=== PATIENT | female | born 1930 | race Caucasian/White ===

== ENCOUNTER 2016-12-17 17:40 | Inpatient (IN) | payer MEDICARE, BC ==
[2016-12-17] MEDS ORDERED: HYDROcodone/APAP 5-325MG 1 EACH TAB PO PRN (22:13)
[2016-12-17] MEDS ORDERED: IBUPROFEN 200 MG TAB PO PRN (22:13)
[2016-12-17] MEDS ORDERED: clonazePAM 0.5 MG TAB PO PRN (22:13)
[2016-12-17] MEDS ORDERED: WARFARIN 2 MG TAB PO SCH (22:15)
[2016-12-17 22:45] VITALS: BMI 30.7
[2016-12-17] MEDS: FUROSEMIDE 10 MG/ML 4 ML VIAL IV SCH (23:58)
[2016-12-18 06:15] LABS: Anisocytosis Slight; Basophils # (A) 0.1 k/uL (0-0.2); Basophils % (A) 1 %; CH 28.2; CHCM 31.9; Eosinophils # (A) 0.1 k/uL (0-0.7); Eosinophils % (A) 1 %; HCT 36.4 % (34.0-46.0); HDW 2.26; HGB 11.6 gm/dL (11.4-16.0); Luc % (Auto) 3; Lymphocytes # (A) 1.9 k/uL (1.0-4.8); Lymphocytes % (A) 25 %; MCH 28.4 pg (25.0-35.0); MCHC 31.9 g/dL (31.0-37.0); Mean Platelet Volume 7.8; Monocytes # (A) 0.5 k/uL (0-1.0); Monocytes % (A) 7 %; Neutrophils # (A) 4.9 k/uL (1.3-7.7); Neutrophils % (A) 64 %; RDW 18.1 % (11.5-15.5); WBC 7.6 k/uL (3.8-10.6); WBC (Perox) 8.02
[2016-12-18 06:18] LABS: INR 2.5 (<1.1); Prothrombin Time 24.4 sec (9.0-12.0)
[2016-12-18] MEDS ORDERED: amLODIPine 5 MG TAB PO SCH (09:00)
--- NOTE | 2016-12-18 09:41 | ECHOF ---
Referral Reason:bradycardia MEASUREMENTS -------- HEIGHT: 147.3 cm WEIGHT: 64.4 kg BP: 133/62 RVIDd: 3.6 cm (< 3.3) IVSd: 1.0 cm (0.6 - 1.1) LVIDd: 4.4 cm (3.9 - 5.3) LVPWd: 1.0 cm (0.6 - 1.1) IVSs: 1.8 cm LVIDs: 3.7 cm LVPWs: 1.5 cm LA Diam: 4.4 cm (2.7 - 3.8) LAESV Index (A-L): 33.81 ml/m Ao Diam: 3.4 cm (2.0 - 3.7) AV Cusp: 2.7 cm (1.5 - 2.6) MV EXCURSION: 12.690 mm (> 18.000) MV EF SLOPE: 63 mm/s (70 - 150) EPSS: 0.1 cm RAP: 5.00 mmHg RVSP: 28.31 mmHg FINDINGS -------- The rhythm appears to be atrial flutter. This was a technically adequate study. The left ventricular size is normal. Left ventricular wall thickness is normal. Overall left ventricular systolic function is normal with, an EF between 60 - 65 %. The right ventricle is mildly enlarged. LA is midly dilated 29-33ml/m2. The right atrium is normal in size. Aortic valve is trileaflet and is mildly thickened. Mild mitral annular calcification present. There is trace mitral regurgitation. Mild tricuspid regurgitation present. Right ventricular systolic pressure is normal at < 35 mmHg. Trace/mild (physiologic) pulmonic regurgitation. The aortic root size is normal. The inferior vena cava is mildly dilated. There is no pericardial effusion. CONCLUSIONS -------- 1. The rhythm appears to be atrial flutter. 2. Mild mitral annular calcification present. 3. There is trace mitral regurgitation. 4. Mild tricuspid regurgitation present. 5. Right ventricular systolic pressure is normal at < 35 mmHg. 6. Trace/mild (physiologic) pulmonic regurgitation. 7. The aortic root size is normal. 8. The inferior vena cava is mildly dilated. 9. There is no pericardial effusion. 10. This was a technically adequate study. 11. The left ventricular size is normal. 12. Left ventricular wall thickness is normal. 13. Overall left ventricular systolic function is normal with, an EF between 60 - 65 %. 14. The right ventricle is mildly enlarged. 15. LA is midly dilated 29-33ml/m2. 16. The right atrium is normal in size. 17. Aortic valve is trileaflet and is mildly thickened. STOCK BROKER: Tina Muñoz RDCS
[2016-12-18] MEDS: FUROSEMIDE 10 MG/ML 4 ML VIAL IV SCH (09:52)
[2016-12-18] MEDS: SENNOSIDES-DOCUSATE SODIUM 1 EACH TAB PO SCH (09:57)
--- NOTE | 2016-12-18 11:04 | P.CRDCN ---
<Sophie Baig E - Last Filed: 12/18/16 10:53> History of Present Illness Consult date: 12/18/16 Requesting physician: Afshan Armendariz Reason for Consult (text): Bradycardia Chief complaint: Bradycardia History of present illness: Is a pleasant 86-year-old female with history of hypertension, chronic persistent atrial fibrillation, on Coumadin, Parkinson's, who follows with Dr. Ibarra in the [place] office. She was at physical therapy, they noted that her heart rate was low and for this reason she was brought to [facility]. EKG on arrival there showed atrial fibrillation with a slow ventricular response and patient was transferred here for further evaluation. Upon review of patient's home medications, it does not appear that she is on any rate lowering medication. She does state that she had been on thyroid medication in the past, which had been discontinued several years ago. She denies having any chest pain, her breathing overall has been stable. Laboratory data performed at [facility] is been reviewed, hemoglobin 11.8, platelet count 2:30, BNP level 2407, potassium 4.2, BUN 10, creatinine 0.7. Troponin 0.054. D-dimer 0.7 INR 2.2. Echocardiogram with Doppler study was performed here which revealed an ejection fraction of 60-65%. Blood pressure 133/60, heart rate in the 30s. Troponin 0.037, 0.026. BNP level 2480. INR 2.5. Patient was seen and examined, she denies having any dizziness or lightheadedness, no chest discomfort, no difficulty in breathing. Past Medical History Past Medical History: Atrial Fibrillation, Atrial Flutter, GERD/Reflux, Hypertension Additional Past Medical History / Comment(s): osteoporosis, incont of urine wears a pad, djd lt knee "knee goes out on me occ", parkinsons/tremors,balance issues, falls (6months ago), in april 2016 fell and fx lt humerus. rt hand dominant. Frequent urinary tract infections. Ataxia, weakness, speech impaired daughter says from parkinsons. 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 pt stated getting home care services Smoking Status: Never smoker Past Alcohol Use History: None Reported Past Drug Use History: None Reported - Past Family History Mother Additional Family Medical History / Comment(s): parkinsons Sister(s) Additional Family Medical History / Comment(s): parkinsons. niece/nephew with parkinsons Father Additional Family Medical History / Comment(s): " from a coronary thrombosis " Medications and Allergies Home Medications Medication Instructions Recorded Confirmed Type Lisinopril 40 mg PO HS 09/21/16 12/17/16 History HYDROcodone/APAP 5-325MG [[place] 1 each PO Q6H PRN 12/17/16 12/17/16 History 5-325] Ibuprofen [Advil] 200 mg PO Q4HR PRN 12/17/16 12/17/16 History Metoprolol Tartrate [Metoprolol 25 mg PO BID 12/17/16 12/17/16 History Tartrate] Multivitamins, Thera [Multivitamin] 1 tab PO DAILY 12/17/16 12/17/16 History Sennosides-Docusate Sodium 8.6 mg PO DAILY 12/17/16 12/17/16 History [Senokot-S] Warfarin [Coumadin] 2 mg PO SUMOWEFRSA 12/17/16 12/17/16 History rOPINIRole HCL [Requip Xl] 2 mg PO HS 12/17/16 12/17/16 History Allergies Allergy/AdvReac Type Severity Reaction Status Date / Time ciprofloxacin [From Cipro] Allergy Unknown Verified 12/17/16 21:38 ertapenem [From Invanz] Allergy Unknown Verified 12/17/16 21:38 Penicillins Allergy Rash/Hives Verified 12/17/16 21:38 Sulfa (Sulfonamide Allergy Rash/Hives Verified 12/17/16 21:38 Antibiotics) Physical Exam Vitals: Vital Signs Temp Pulse Resp BP Pulse Ox 12/18/16 03:45 97.1 F L 33 L 18 133/62 99 12/17/16 23:00 96.8 F L 31 L 16 154/69 98 12/17/16 22:28 96.8 F L 42 L 18 184/77 99 12/17/16 21:00 96.8 F L 42 L 16 155/64 99 Intake and Output 12/17/16 12/18/16 12/18/16 22:59 06:59 14:59 Intake Total 100 Output Total 1825 Balance -1825 100 Intake: Oral 100 Output: Urine 1825 Other: Voiding Method Bedside Commode Bedside Commode # Voids 1 1 Weight 66.7 kg 65.1 kg PHYSICAL EXAMINATION: HEENT: Head is atraumatic, normocephalic. Pupils equal, round. Neck is supple. There is no elevated jugular venous pressure. HEART EXAMINATION: R S1 and S2 irregular irregular CHEST EXAMINATION: Lungs are clear to auscultation and precussion. No chest wall tenderness is noted on palpation or with deep breathing. ABDOMEN: Soft, nontender. Bowel sounds are heard. No organomegaly noted. EXTREMITIES: 2+ peripheral pulses with no evidence of peripheral edema and no calf tenderness noted. Mild tremors NEUROLOGIC patient is awake, alert and oriented -3. Patient does have impaired speech secondary to Parkinson's . Results 12/18/16 05:39 Cardiac Enzymes 12/17/16 12/18/16 Range/Units 22:27 05:39 Troponin I 0.037 H* 0.026 (0.000-0.034) ng/mL Coagulation 12/18/16 Range/Units 05:39 PT 24.4 H (9.0-12.0) sec CBC 12/18/16 Range/Units 05:39 WBC 7.6 (3.8-10.6) k/uL RBC 4.10 (3.80-5.40) m/uL Hgb 11.6 (11.4-16.0) gm/dL Hct 36.4 (34.0-46.0) % Plt Count 220 (150-450) k/uL Current Medications Generic Name Dose Route Start Last Admin Trade Name Freq PRN Reason Stop Dose Admin Acetaminophen/Hydrocodone Bitart 1 each 12/17/16 22:13 [place] 5-325 PO Q6H PRN Moderate to Severe Pain Amlodipine Besylate 5 mg 12/18/16 09:00 12/18/16 09:52 Norvasc PO 5 mg DAILY STEVE Administration Clonazepam 0.5 mg 12/17/16 22:13 Klonopin PO BID PRN Agitation Furosemide 40 mg 12/17/16 22:30 12/18/16 09:52 Lasix IV 40 mg Q12HR STEVE Administration Ibuprofen 200 mg 12/17/16 22:13 Advil PO Q4HR PRN Mild Pain Lisinopril 40 mg 12/18/16 21:00 Zestril PO HS STEVE Multivitamins 1 each 12/18/16 12:00 Theragran PO DAILY@1200 STEVE Ropinirole HCl 0.5 mg 12/17/16 22:15 12/18/16 09:52 Requip PO 0.5 mg TID STEVE Administration Senna/Docusate Sodium 1 each 12/18/16 09:00 12/18/16 09:57 Senokot-S PO 1 each DAILY STEVE Administration Warfarin Sodium 2 mg 12/19/16 18:00 Coumadin PO SuMoWeFrSa@1800 STEVE Intake and Output 12/17/16 12/18/16 12/18/16 22:59 06:59 14:59 Intake Total 100 Output Total 1825 Balance -1825 100 Intake: Oral 100 Output: Urine 1825 Other: Voiding Method Bedside Commode Bedside Commode # Voids 1 1 Weight 66.7 kg 65.1 kg 12/18/16 05:39 EKG Interpretations (text) EKG shows atrial fibrillation with a slow ventricular response. Assessment and Plan Plan: Assessment and plan #1 bradycardia, EKG shows atrial fibrillation with a slow ventricular response #2 chronic persistent atrial fibrillation, on Coumadin. INR therapeutic #3 hypertension #4 Parkinson's Plan We will check the patient's free T4 and TSH level. Discontinue IV Lasix. Increase amlodipine to 10 mg one tablet by mouth daily. Obtain chest x-ray. Further recommendations to follow. DNP note has been reviewed, I agree with a documented findings and plan of care. Patient was seen and examined. Time with Patient: Greater than 30 <Julio Patel - Last Filed: 12/18/16 20:16> Physical Exam Vitals: Vital Signs Temp Pulse Resp BP Pulse Ox 12/18/16 16:00 97.2 F L 42 L 16 145/66 97 12/18/16 12:00 97.1 F L 45 L 14 137/81 98 12/18/16 08:00 97.4 F L 42 L 14 159/68 95 12/18/16 03:45 97.1 F L 33 L 18 133/62 99 12/17/16 23:00 96.8 F L 31 L 16 154/69 98 12/17/16 22:28 96.8 F L 42 L 18 184/77 99 12/17/16 21:00 96.8 F L 42 L 16 155/64 99 Intake and Output 12/18/16 12/18/16 12/18/16 06:59 14:59 22:59 Intake Total 100 180 Output Total 1825 Balance -1825 100 180 Intake: Oral 100 180 Output: Urine 1825 Other: Voiding Method Bedside Commode # Voids 1 0 Weight 65.1 kg Results 12/18/16 05:39 Cardiac Enzymes 12/17/16 12/18/16 Range/Units 22:27 05:39 Troponin I 0.037 H* 0.026 (0.000-0.034) ng/mL Coagulation 12/18/16 Range/Units 05:39 PT 24.4 H (9.0-12.0) sec CBC 12/18/16 Range/Units 05:39 WBC 7.6 (3.8-10.6) k/uL RBC 4.10 (3.80-5.40) m/uL Hgb 11.6 (11.4-16.0) gm/dL Hct 36.4 (34.0-46.0) % Plt Count 220 (150-450) k/uL Current Medications Generic Name Dose Route Start Last Admin Trade Name Freq PRN Reason Stop Dose Admin Acetaminophen/Hydrocodone Bitart 1 each 12/17/16 22:13 [place] 5-325 PO Q6H PRN Moderate to Severe Pain Amlodipine Besylate 10 mg 12/19/16 09:00 Norvasc PO DAILY STEVE Clonazepam 0.5 mg 12/17/16 22:13 Klonopin PO BID PRN Agitation Ibuprofen 200 mg 12/17/16 22:13 Advil PO Q4HR PRN Mild Pain Lisinopril 40 mg 12/18/16 21:00 Zestril PO HS [facility] Multivitamins 1 each 12/18/16 12:00 12/18/16 12:49 Theragran PO 1 each DAILY@1200 STEVE Administration Ropinirole HCl 0.5 mg 12/17/16 22:15 01/31/17 16:54 Requip PO 0.5 mg TID STEVE Administration Senna/Docusate Sodium 1 each 12/18/16 09:00 12/18/16 09:57 Senokot-S PO 1 each DAILY STEVE Administration Warfarin Sodium 2 mg 12/19/16 18:00 Coumadin PO SuMoWeFrSa@1800 [facility] Intake and Output 12/18/16 12/18/16 12/18/16 06:59 14:59 22:59 Intake Total 100 180 Output Total 1825 Balance -1825 100 180 Intake: Oral 100 180 Output: Urine 1825 Other: Voiding Method Bedside Commode # Voids 1 0 Weight 65.1 kg 12/18/16 05:39
[2016-12-18] MEDS ORDERED: amLODIPine 5 MG TAB PO ONE (11:15)
--- NOTE | 2016-12-18 11:41 | XR ---
EXAMINATION TYPE: XR chest 2V DATE OF EXAM: 12/18/2016 11:29 AM COMPARISON: NONE INDICATION: CHF weakness TECHNIQUE: Frontal and lateral views of the chest are obtained. FINDINGS: The heart size is borderline in size. The pulmonary vasculature is normal. The lungs are clear. Old left proximal humeral fracture appears to be present IMPRESSION: 1. No acute pulmonary process. 2. Borderline cardiomegaly.
[2016-12-18] MEDS ORDERED: PNEUMOCOCCAL VACC-PNEUMOVAX 23 25 MCG/0.5 ML VIAL IM ONE (12:02)
[2016-12-18] MEDS: MULTIVITAMINS, THERA 1 EACH TAB PO SCH (12:49)
[2016-12-18] MEDS ORDERED: ALPRAZolam 0.25 MG TAB PO PRN (21:26)
[2016-12-18] MEDS: LISINOPRIL 20 MG TAB PO SCH (22:19)
--- NOTE | 2016-12-19 05:32 | HP ---
DATE OF ADMISSION: DATE OF SERVICE: 12/18/2016 CHIEF COMPLAINT: Bradycardia. HISTORY OF PRESENT ILLNESS: This 86-year-old woman with a past medical history of multiple medical problems including atrial fibrillation, atrial flutter, GERD, hypertension, history of osteoporosis, history of back surgery, cholecystectomy, DJD, history of urinary problems being followed by primary physician in [facility] presented to [facility] ER with bradycardia. The patient was in therapy. The patient was found to have bradycardia, which was thought to be atrial flutter/fibrillation with low ventricular response. The patient was transferred to [facility] as a direct admission for further evaluation and treatment. There is no history of any fever, rigors or chills. No history of headache, loss of consciousness or seizures. The patient also had a polypharmacy, which was a concern for few abrasions of headache, loss of consciousness. The patient also had features concern for Dr. Baer who referred to the patient. The patient apparently was on beta blockers and taken a dose of 50 mg of prior to the presentation. There is no history of any fever, rigors or chills. No history of headaches, loss of consciousness or seizures. PAST MEDICAL HISTORY: History of atrial flutter, atrial fibrillation, GERD, hypertension, osteoporosis, back surgery, DJD, history of tonsillectomy. Medications prior to admission include home medications are: 1. Metoprolol 25 mg p.o. b.i.d. 2. Requip 2 mg p.o. q.h.s. 3. Senokot S 8.6 mg p.o. daily. 4. Multivitamin 1 p.o. daily. 5. Advil 200 mg q.4 p.r.n. 6. Norvasc 5 mg p.o. daily. 7. Coumadin 2 mg Saturday, Saturday, Saturday, Saturday, Saturday. 8. Lisinopril 40 mg q.h.s. 9. Klonopin 0.5 mg b.i.d. p.r.n. 10. [place] 5 mg q.6 p.r.n. Allergies are multiple allergies are CIPRO, INVANZ, PENICILLIN, and SULFA. FAMILY HISTORY: History of Parkinson's in the family. SOCIAL HISTORY: No history of smoking. No history of alcohol intake. REVIEW OF SYSTEMS: ENT: Diminished hearing, diminished vision. CARDIOVASCULAR: As mentioned earlier. RESPIRATORY: As mentioned earlier. GI: No nausea. : No dysuria. NERVOUS SYSTEM: No numbness or weakness. ALLERGY/IMMUNOLOGY: No asthma or hayfever. MUSCULOSKELETAL: As mentioned earlier. HEMATOLOGY/ONCOLOGY: No history of anemia. ENDOCRINE: No history of diabetes or hypothyroidism. CONSTITUTIONAL: As mentioned earlier. DERMATOLOGY: Negative. RHEUMATOLOGY: Negative. PSYCHIATRY: As mentioned earlier. PHYSICAL EXAMINATION: The patient is alert and oriented x3. The pulse is 42, blood pressure is 145/66, respirations 16, temperature 97.2, pulse ox 97% on room air. HEENT: Conjunctivae normal. Oral mucosa moist. NECK: No jugular venous distention. No carotid bruit. No lymph node enlargement. CARDIOVASCULAR: S1 and S2, muffled. Bradycardiac, irregular. No S3, no S4. Ejection systolic murmur present. RESPIRATORY: Breath sounds diminished at the bases. A few scattered rhonchi and crackles. ABDOMEN: Soft, obese, nontender. No mass palpable. No hepatosplenomegaly. LEGS: No edema, no swelling. NERVOUS SYSTEM: Higher function as mentioned earlier. Cranial nerves grossly intact. Moves all 4 limbs. No focal motor or sensory deficits. LYMPHATICS: No lymphadenopathy of neck, axillae or groin. SKIN: No ulcer, rash or bleeding. Labs are at this time shows WBC 7.7, hemoglobin 11.6. INR is 2.5. Troponin 0.037. NT-proBNP is 2480. TSH is normal. ASSESSMENT: 1. Bradycardia with atrial flutter, fibrillation with slow ventricular rate, possibly medication induced. 2. Coumadin monitoring. 3. History of atrial flutter, atrial fibrillation. 4. History of gastroesophageal reflux disease. 5. Hypertension. 6. History of degenerative joint disease. 7. History of Parkinson's tremors. 8. History of recurrent urinary tract infections. 9. History of ataxia. 10. History of possible Parkinson's. 11. History of cholecystectomy. 12. History of postoperative nausea and vomiting. 13. FULL CODE. RECOMMENDATIONS AND DISCUSSION: This 86-year-old woman presented with multiple complex medical issues. Will monitor the patient closely. Continue the current medications and symptomatic treatment. Recommend to hold the beta blockers. Continue with Coumadin. Continue with Norvasc. Continue with the rest of the medications. Otherwise, prognosis guarded because of multiple complex medical issues. Further recommendations to follow. We will also repeat labs also. The prognosis guarded and 2-D echo has been reviewed. Further recommendations to follow. Polypharmacy will also be addressed. [facility]
[2016-12-19 06:20] LABS: INR 1.7 (<1.1)
[2016-12-19 06:22] LABS: Anisocytosis Slight; Basophils % (A) 0 %; CH 28.4; CHCM 32.2; Eosinophils # (A) 0.1 k/uL (0-0.7); Eosinophils % (A) 1 %; HCT 39.3 % (34.0-46.0); HDW 2.23; HGB 12.3 gm/dL (11.4-16.0); Luc # (Auto) 0.13; Luc % (Auto) 2; Lymphocytes # (A) 1.7 k/uL (1.0-4.8); Lymphocytes % (A) 24 %; MCH 27.8 pg (25.0-35.0); MCHC 31.4 g/dL (31.0-37.0); MCV 88.5 fL (80.0-100.0); Mean Platelet Volume 7.4; Monocytes # (A) 0.5 k/uL (0-1.0); Monocytes % (A) 6 %; Neutrophils # (A) 4.8 k/uL (1.3-7.7); Neutrophils % (A) 67 %; RBC 4.44 m/uL (3.80-5.40); RDW 17.8 % (11.5-15.5); WBC 7.2 k/uL (3.8-10.6); WBC (Perox) 7.94
[2016-12-19 06:38] LABS: Anion Gap 10 mmol/L; Blood Urea Nitrogen 13 mg/dL (7-17); Calcium 9.2 mg/dL (8.4-10.2); Carbon Dioxide 31 mmol/L (22-30); Chloride 98 mmol/L (98-107); Glucose 101 mg/dL (74-99); Non-African American GFR(MDRD) >60 (>60 ml/min/1.73 sqM); Potassium 3.8 mmol/L (3.5-5.1); Sodium 139 mmol/L (137-145)
[2016-12-19] MEDS: amLODIPine 10 MG TAB PO SCH (08:07)
[2016-12-19] MEDS: SENNOSIDES-DOCUSATE SODIUM 1 EACH TAB PO SCH (08:07)
[2016-12-19] MEDS: MULTIVITAMINS, THERA 1 EACH TAB PO SCH (12:14)
--- NOTE | 2016-12-19 13:23 | P.PN ---
Subjective Principal diagnosis: Bradycardia This Is a pleasant 86-year-old female with history of hypertension, chronic persistent atrial fibrillation, on Coumadin, Parkinson's, who follows with Dr. Luz in the [place] office. She was at physical therapy, they noted that her heart rate was low and for this reason she was brought to [facility]. EKG on arrival there showed atrial fibrillation with a slow ventricular response and patient was transferred here for further evaluation. Upon review of patient's home medications on arrival here, it did not appear that she was on any rate lowering medication, yesterday evening an accurate list was given, patient apparently had been on Lopressor 25 mg by mouth twice a day, however she had only just recently been on this. This has been held for 24 hours, patient continues to have a heart rate in the 30s to 40s. The plan is to continue to monitor the patient, once a beta ulcia is out of her system and she persists to be bradycardic she will need implantation of a permanent pacemaker. Thyroid level was normal Objective - Vital Signs Vital signs: Vital Signs Temp 97.4 F L 12/19/16 08:00 Pulse 52 L 12/19/16 12:00 Resp 16 12/19/16 12:00 BP 155/57 12/19/16 12:00 Pulse Ox 99 12/19/16 12:00 Intake & Output 12/18/16 12/19/16 12/19/16 18:59 06:59 18:59 Intake Total 280 Output Total 500 300 Balance 280 -500 -300 Weight 65 kg Intake: Oral 280 Output: Urine 500 300 Other: Voiding Method Bedside Commode Bedside Commode # Voids 0 # Bowel Movements 1 - Exam PHYSICAL EXAMINATION: HEENT: Head is atraumatic, normocephalic. Pupils equal, round. Neck is supple. There is no elevated jugular venous pressure. HEART EXAMINATION: R S1 and S2 irregular irregular CHEST EXAMINATION: Lungs are clear to auscultation and precussion. No chest wall tenderness is noted on palpation or with deep breathing. ABDOMEN: Soft, nontender. Bowel sounds are heard. No organomegaly noted. EXTREMITIES: 2+ peripheral pulses with no evidence of peripheral edema and no calf tenderness noted. Mild tremors NEUROLOGIC patient is awake, alert and oriented -3. Patient does have impaired speech secondary to Parkinson's - Labs CBC & Chem 7: 12/19/16 05:49 12/19/16 05:49 Labs: Abnormal Lab Results - Last 24 Hours (Table) 12/19/16 12/19/16 12/19/16 Range/Units 05:49 05:49 05:49 RDW 17.8 H (11.5-15.5) % PT 16.0 H (9.0-12.0) sec Carbon Dioxide 31 H (22-30) mmol/L Glucose 101 H (74-99) mg/dL Assessment and Plan Plan: Assessment and plan #1 bradycardia, EKG shows atrial fibrillation with a slow ventricular response #2 chronic persistent atrial fibrillation, on Coumadin. INR 1.7 today. #3 hypertension #4 Parkinson's Plan We'll continue to monitor the patient off of beta lucia, if she persists to be bradycardic she will require implantation of a permanent pacemaker. DNP note has been reviewed, I agree with a documented findings and plan of care. Patient was seen and examined.
[2016-12-19] MEDS ORDERED: WARFARIN 2 MG TAB PO SCH (18:00)
[2016-12-19] MEDS ORDERED: WARFARIN 5 MG TAB PO ONE (18:00)
--- NOTE | 2016-12-19 19:09 | PN ---
DATE OF SERVICE: 12/19/2016 This 86-year-old woman who was admitted with bradycardia and atrial flutter/fibrillation is being closely monitored. Cardiology is following the patient closely for possible pacemaker implantation. No chest pain or palpitations. No fever. On examination, alert and oriented x2. Pulse 52, blood pressure 155/57, respiratory rate 16, temperature 97.4, pulse ox 99% on room air. HEENT: Conjunctivae normal. NECK: No jugular venous distention. CARDIOVASCULAR SYSTEM: S1, S2 regular but bradycardic. RESPIRATORY SYSTEM: Breath sounds diminished at the bases. A few scattered rhonchi. ABDOMEN: Soft, nontender. LEGS: No edema. No swelling. NERVOUS SYSTEM: No focal deficit. LABS: INR 1.7 NT-proBNP 2480. The chest x-ray shows borderline cardiomegaly. Otherwise, 2-D echo with Doppler shows ejection fraction about 60% to 65%, LA mildly dilated. ASSESSMENT: 1. Bradycardia with atrial flutter/fibrillation with a slow ventricular rate, possibly medication-induced. 2. Coumadin monitoring. 3. History of atrial flutter/fibrillation. 4. History of gastroesophageal reflux disease. 5. Hypertension. 6. History of degenerative joint disease. 7. History of parkinsonian tremors. 8. Recurrent urinary tract infections. 9. History of ataxia. 10. History of cholecystectomy. 11. History of postoperative nausea, vomiting. 12. FULL CODE. RECOMMENDATIONS AND DISCUSSION: In this 86-year-old woman who presented with multiple complex medical issues, we will monitor the patient closely. The heart rate is still low. I would follow the patient closely with Cardiology. Avoid rate-limiting drugs. Possible pacemaker. Further recommendations to follow.
[2016-12-19] MEDS: MELATONIN 3 MG TABLET PO SCH (22:17)
[2016-12-19] MEDS: LISINOPRIL 20 MG TAB PO SCH (22:17)
[2016-12-20 06:33] LABS: Anisocytosis Slight; Basophils % (A) 0 %; CH 28.4; CHCM 32.3; Eosinophils # (A) 0.1 k/uL (0-0.7); Eosinophils % (A) 1 %; HCT 39.3 % (34.0-46.0); HDW 2.26; HGB 12.5 gm/dL (11.4-16.0); Luc % (Auto) 3; Lymphocytes # (A) 1.9 k/uL (1.0-4.8); Lymphocytes % (A) 27 %; MCH 28.2 pg (25.0-35.0); MCHC 31.9 g/dL (31.0-37.0); MCV 88.5 fL (80.0-100.0); Mean Platelet Volume 8.1; Monocytes # (A) 0.4 k/uL (0-1.0); Monocytes % (A) 6 %; Neutrophils # (A) 4.4 k/uL (1.3-7.7); Neutrophils % (A) 62 %; RBC 4.44 m/uL (3.80-5.40); RDW 17.6 % (11.5-15.5); WBC 7.1 k/uL (3.8-10.6)
[2016-12-20 06:35] LABS: INR 1.4 (<1.1); Prothrombin Time 13.8 sec (9.0-12.0)
[2016-12-20 06:44] LABS: Anion Gap 8 mmol/L; Blood Urea Nitrogen 15 mg/dL (7-17); Calcium 9.3 mg/dL (8.4-10.2); Carbon Dioxide 32 mmol/L (22-30); Chloride 102 mmol/L (98-107); Glucose 94 mg/dL (74-99); Non-African American GFR(MDRD) >60 (>60 ml/min/1.73 sqM); Potassium 4.5 mmol/L (3.5-5.1); Sodium 142 mmol/L (137-145)
[2016-12-20] MEDS: amLODIPine 10 MG TAB PO SCH (08:11)
[2016-12-20] MEDS: SENNOSIDES-DOCUSATE SODIUM 1 EACH TAB PO SCH (08:11)
[2016-12-20] MEDS: MULTIVITAMINS, THERA 1 EACH TAB PO SCH (11:45)
[2016-12-20] MEDS: SODIUM CHLORIDE 0.9% 1,000 ML IV SCH (11:45)
--- NOTE | 2016-12-20 14:17 | P.PN ---
Subjective Principal diagnosis: Bradycardia This Is a pleasant 86-year-old female with history of hypertension, chronic persistent atrial fibrillation, on Coumadin, Parkinson's, who follows with Dr. Luz in the [place] office. She was at physical therapy, they noted that her heart rate was low and for this reason she was brought to [facility]. EKG on arrival there showed atrial fibrillation with a slow ventricular response and patient was transferred here for further evaluation. In spite of the patient's beta lucia being held, heart rate consistently is in the low 40s. Dr. Patel did have a lengthy discussion with the patient and her today regarding implantation of a permanent pacemaker. The risks and the benefits were explained in detail. This will be performed tomorrow. Objective - Vital Signs Vital signs: Vital Signs Temp 98.1 F 12/20/16 11:40 Pulse 57 L 12/20/16 11:40 Resp 18 12/20/16 11:40 BP 119/59 12/20/16 11:40 Pulse Ox 95 12/20/16 11:40 Intake & Output 12/19/16 12/20/16 12/20/16 18:59 06:59 18:59 Intake Total 200 Output Total 300 725 301 Balance -300 -725 -101 Weight 62.5 kg Intake: Oral 200 Output: Urine 300 725 300 Urine/Stool Mix 1 Other: Voiding Method Bedside Commode Bedside Commode Bedside Commode - Exam PHYSICAL EXAMINATION: HEENT: Head is atraumatic, normocephalic. Pupils equal, round. Neck is supple. There is no elevated jugular venous pressure. HEART EXAMINATION: R S1 and S2 irregular irregular CHEST EXAMINATION: Lungs are clear to auscultation and precussion. No chest wall tenderness is noted on palpation or with deep breathing. ABDOMEN: Soft, nontender. Bowel sounds are heard. No organomegaly noted. EXTREMITIES: 2+ peripheral pulses with no evidence of peripheral edema and no calf tenderness noted. Mild tremors NEUROLOGIC patient is awake, alert and oriented -3. Patient does have impaired speech secondary to Parkinson's - Labs CBC & Chem 7: 12/20/16 05:32 12/20/16 05:32 Labs: Abnormal Lab Results - Last 24 Hours (Table) 12/20/16 12/20/16 12/20/16 Range/Units 05:32 05:32 05:32 RDW 17.6 H (11.5-15.5) % PT 13.8 H (9.0-12.0) sec Carbon Dioxide 32 H (22-30) mmol/L Assessment and Plan Plan: Assessment and plan #1 bradycardia, EKG shows atrial fibrillation with a slow ventricular response #2 chronic persistent atrial fibrillation, on Coumadin. INR 1.4 today. #3 hypertension #4 Parkinson's Plan We will give the patient 5 mg of Coumadin today. She will be scheduled to undergo implantation of a permanent pacemaker tomorrow by Dr. Patel. DNP note has been reviewed, I agree with a documented findings and plan of care. Patient was seen and examined.
--- NOTE | 2016-12-20 18:56 | PN ---
DATE OF SERVICE: 12/20/2016 This 86 -year-old woman was admitted to the hospital with severe bradycardia in a setting of atrial flutter fibrillation, is being closely monitored. Cardiology, pacemaker implantation has been scheduled tentatively. No chest pain or palpitation. No fever. Patient is off beta blockers. On exam, alert and oriented x3. Pulse is 57, blood pressure 119/59, respiration 18. Temperature 97.9. Pulse is up to , pulse ox 99% on room air. HEENT: Conjunctivae normal. NECK: No jugular venous distention. CARDIOVASCULAR: S1, S2 muffled. RESPIRATORY: Breath sounds diminished at the bases. A few scattered rhonchi. No crackles. ABDOMEN: Soft, nontender. No mass palpable. LEGS: No edema. No swelling. CENTRAL NERVOUS SYSTEM: No focal deficits. LABS: INR 1.4. Troponins noted. ASSESSMENT: 1. Bradycardia with atrial fibrillation with slow ventricular rate not improving while off beta blockers. 2. Coumadin monitoring. 3. History of atrial flutter, fibrillation. 4. History of gastroesophageal reflux disease. 5. Hypertension. 6. History of degenerative joint disease. 7. History of Parkinsonian tremors. 8. Recurrent urinary tract infection. 9. History of ataxia. 10. History of cholecystectomy. 11. History of postoperative nausea and vomiting. 12. FULL CODE. RECOMMENDATIONS AND DISCUSSION: Recommend to continue the current medications, continue with monitoring. Symptomatic treatment. Otherwise, at this time, I recommend closely follow with cardiology and pacemaker. Guarded prognosis because of multiple complex medical issues. Further recommendations to follow. See orders for details. Avoid beta blockers. MTDD
[2016-12-20] MEDS: LISINOPRIL 20 MG TAB PO SCH (21:37)
[2016-12-20] MEDS: MELATONIN 3 MG TABLET PO SCH (21:37)
[2016-12-21 06:07] LABS: Anisocytosis Slight; Basophils % (A) 0 %; CH 28.4; CHCM 32.2; Eosinophils # (A) 0.1 k/uL (0-0.7); Eosinophils % (A) 1 %; HCT 37.2 % (34.0-46.0); HDW 2.24; Luc # (Auto) 0.19; Luc % (Auto) 3; Lymphocytes # (A) 1.9 k/uL (1.0-4.8); Lymphocytes % (A) 28 %; MCH 28.6 pg (25.0-35.0); MCHC 32.3 g/dL (31.0-37.0); MCV 88.4 fL (80.0-100.0); Mean Platelet Volume 7.3; Monocytes # (A) 0.5 k/uL (0-1.0); Monocytes % (A) 7 %; Neutrophils # (A) 4.1 k/uL (1.3-7.7); Neutrophils % (A) 61 %; RBC 4.21 m/uL (3.80-5.40); RDW 17.6 % (11.5-15.5); WBC 6.8 k/uL (3.8-10.6); WBC (Perox) 7.13
[2016-12-21 06:13] LABS: INR 1.8 (<1.1); Prothrombin Time 17.8 sec (9.0-12.0)
[2016-12-21 06:26] LABS: Anion Gap 9 mmol/L; Blood Urea Nitrogen 14 mg/dL (7-17); Calcium 9.1 mg/dL (8.4-10.2); Carbon Dioxide 29 mmol/L (22-30); Chloride 102 mmol/L (98-107); Glucose 99 mg/dL (74-99); Non-African American GFR(MDRD) >60 (>60 ml/min/1.73 sqM); Potassium 4.1 mmol/L (3.5-5.1); Sodium 140 mmol/L (137-145)
[2016-12-21] MEDS: amLODIPine 10 MG TAB PO SCH (08:20)
[2016-12-21] MEDS: SENNOSIDES-DOCUSATE SODIUM 1 EACH TAB PO SCH (10:50)
[2016-12-21] MEDS: SODIUM CHLORIDE 0.9% 1,000 ML IV SCH (10:58)
[2016-12-21] MEDS ORDERED: IV FLUID CONTINUATION 1,000 ML IV ONE (13:00)
[2016-12-21] MEDS ORDERED: IODIXANOL 320 MG/ML 100 ML IV ONE (13:33)
[2016-12-21] MEDS: CLINDAMYCIN 600 MG in SODIUM CHLORIDE 0.9% IRRIGATIO 250 ML IRRIGATION ONE ×2 (13:40→13:42)
[2016-12-21] MEDS: CLINDAMYCIN 900 MG in DEXTROSE 5% IN WATER 50 ML IVPB ONE ×4 (13:41→13:42)
[2016-12-21] MEDS ORDERED: LIDOCAINE 1% INJ 10MG/ML (20 ML MDV) SQ ONE ×2 (13:46→13:52)
[2016-12-21] MEDS ORDERED: fentaNYL (PF) 50 MCG/ML 2 ML AMP ONE (13:46)
[2016-12-21] MEDS ORDERED: fentaNYL (PF) 50 MCG/ML 2 ML AMP IV ONE (13:49)
[2016-12-21] MEDS ORDERED: ACETAMINOPHEN TAB 325 MG TAB PO PRN (14:25)
--- NOTE | 2016-12-21 14:48 | PCN ---
DATE OF PROCEDURE: Patient presented with severe bradycardia. Her metoprolol 25 mg twice daily was discontinued, but she remained bradycardic in the 40s for the next 3 days, and therefore a single-chamber pacemaker was implanted. She was brought to the EP lab in a fasting state. Written informed consent was obtained prior to the procedure. The left shoulder area was prepped and draped as per protocol. Lidocaine 1% was used for local anesthesia. A 4 cm incision was made parallel to the deltopectoral groove about 1.5 cm medial to it. The incision was carried down to the level of the pectoralis muscle. A subfascial pocket was made. Hemostasis was assured. The left axillary vein was accessed and via an appropriate-sized introducer sheath, a [employer] Jevity MRI passive 59 cm lead was placed. This was a model #7732, serial #[id number]. This was positioned in the RV apex. Pacing impedance 870 ohms. R waves 17.7 mV. Pacing threshold 0.6 v at 0.4 ms. Ten-volt test was negative. The lead was secured to the underlying pectoralis fascia using 2 non-absorbable sutures. The pocket was irrigated with antibiotic solution. The lead was connected to the generator ([employer] Accolade MRI SR model #L310, serial #[id number]). The lead and the generator were then placed in the subfascial pocket. The wound was closed in 3 layers and dressed per protocol. Device was programmed to VVIR 60 to 120 bpm. PLAN: Intravenous antibiotics. Follow up with Dr. Luz in the device clinic.
[2016-12-21] MEDS: MULTIVITAMINS, THERA 1 EACH TAB PO SCH (17:05)
[2016-12-21] MEDS: CLINDAMYCIN 900 MG in DEXTROSE 5% IN WATER 50 ML IVPB SCH ×2 (18:08)
--- NOTE | 2016-12-21 20:04 | P.PN ---
Subjective Date of service 12/21/2016. Progress note being dictated for Dr. Armendariz. Interval history: This is an 86-year-old female admitted with severe bradycardia , atrial fib /flutter and multiple other medical issues. Evaluated by cardiology and underwent pacemaker implantation today. Tolerated procedure well. Telemetry 100% paced, heart rate in the 60s. Denies lightheadedness dizziness or focal deficits. His chest pain, palpitations or increasing shortness of breath. INR 1.8. Objective - Vital Signs Vital signs: Vital Signs Temp 97.0 F L 12/21/16 15:00 Pulse 60 12/21/16 15:00 Resp 18 12/21/16 15:00 BP 133/66 12/21/16 15:00 Pulse Ox 98 12/21/16 15:00 Intake & Output 12/20/16 12/21/16 12/21/16 18:59 06:59 18:59 Intake Total 420 56 Output Total 1551 600 400 Balance -1131 -600 -344 Weight 63.7 kg Intake: IV 56 Oral 420 0 Output: Urine 1550 600 400 Urine/Stool Mix 1 Other: Voiding Method Bedside Commode Bedside Commode Bedside Commode # Voids 1 1 - Exam PHYSICAL EXAM: VITAL SIGNS: As above GENERAL: [Sitting up in bed, no acute distress, wearing sling] HEENT: [Pupils equal conjunctiva normal.] NECK: [Supple, no JVD] RESPIRATORY EFFORT:[Normal] LUNGS: Bilateral bases diminished, occasional scattered rhonchi. Left chest dressing clean dry and intact. [] CARDIOVASCULAR[irregular, no edema] GI: [Abdomen soft, nontender, positive bowel sounds.] PSYCH: [Alert and oriented -3, mood and affect normal.] NEURO: No focal deficits, moves all 4 extremities, strength and sensation grossly intact. Parkinson tremors present - Labs CBC & Chem 7: 12/21/16 05:34 12/21/16 05:34 Labs: Abnormal Lab Results - Last 24 Hours (Table) 12/21/16 12/21/16 Range/Units 05:34 05:34 RDW 17.6 H (11.5-15.5) % PT 17.8 H (9.0-12.0) sec Assessment and Plan Plan: 1. Bradycardia with atrial fibrillation with slow ventricular rate. 2. [Coumadin monitor]. 3. Chronic persistent atrial fibrillation]. 4. Gastroesophageal reflux disease]. 5. [Hypertension]. 6. [Degenerative joint disease]. 7. Parkinson's disease with tremors]. 8. Recurrent UTI 9. History of ataxia 10. History of PONV. Plan: Continue on current medication regime , IV antibiotics monitoring and symptomatic treatment. Patient is status post pacemaker. Discharge planning in progress for tomorrow pending cardiology clearance. Further recommendations to follow. The impression and plan of care has been dictated as directed. : I performed a H&P examination of this patient and discussed the same with the dictator. I agree with the dictator's note. Any additional findings/opinions/ etc. will be noted.
[2016-12-21] MEDS: MELATONIN 3 MG TABLET PO SCH (21:04)
[2016-12-21] MEDS: LISINOPRIL 20 MG TAB PO SCH (21:04)
[2016-12-22] MEDS: CLINDAMYCIN 900 MG in DEXTROSE 5% IN WATER 50 ML IVPB SCH ×6 (00:29→12:41)
[2016-12-22 07:14] LABS: Anisocytosis Slight; Basophils # (A) 0.1 k/uL (0-0.2); Basophils % (A) 1 %; CH 28.5; CHCM 32.2; Eosinophils # (A) 0.1 k/uL (0-0.7); Eosinophils % (A) 1 %; HCT 38.3 % (34.0-46.0); HDW 2.32; HGB 12.5 gm/dL (11.4-16.0); Luc # (Auto) 0.16; Luc % (Auto) 2; Lymphocytes # (A) 2.1 k/uL (1.0-4.8); Lymphocytes % (A) 24 %; MCH 29.1 pg (25.0-35.0); MCHC 32.6 g/dL (31.0-37.0); MCV 89.2 fL (80.0-100.0); Mean Platelet Volume 8.3; Monocytes # (A) 0.8 k/uL (0-1.0); Monocytes % (A) 9 %; Neutrophils # (A) 5.6 k/uL (1.3-7.7); Neutrophils % (A) 64 %; RBC 4.29 m/uL (3.80-5.40); RDW 17.6 % (11.5-15.5); WBC 8.7 k/uL (3.8-10.6); WBC (Perox) 8.79
[2016-12-22 07:18] LABS: INR 2.1 (<1.1); Prothrombin Time 20.1 sec (9.0-12.0)
--- NOTE | 2016-12-22 07:43 | XR ---
EXAMINATION TYPE: XR chest 2V DATE OF EXAM: 12/22/2016 6:26 AM COMPARISON: 12/18/2016 HISTORY: Shortness of breath TECHNIQUE: Frontal and lateral views of the chest are obtained. FINDINGS: Scattered senescent parenchymal changes noted. Hyperinflation compatible with COPD. No evidence for infiltrate. No evidence for atelectasis. Heart size is stable. Mediastinal structures are stable and grossly unremarkable. No evidence for hilar prominence. Degenerative changes dorsal spine. IMPRESSION: 1. No evidence for acute pulmonary disease.
[2016-12-22] MEDS: SENNOSIDES-DOCUSATE SODIUM 1 EACH TAB PO SCH (08:54)
[2016-12-22 09:15] LABS: Anion Gap 12 mmol/L; Blood Urea Nitrogen 14 mg/dL (7-17); Calcium 9.2 mg/dL (8.4-10.2); Carbon Dioxide 24 mmol/L (22-30); Chloride 104 mmol/L (98-107); Glucose 109 mg/dL (74-99); Non-African American GFR(MDRD) >60 (>60 ml/min/1.73 sqM); Potassium 4.1 mmol/L (3.5-5.1); Sodium 140 mmol/L (137-145)
--- NOTE | 2016-12-22 09:44 | P.PN ---
Subjective Principal diagnosis: Bradycardia This Is a pleasant 86-year-old female with history of hypertension, chronic persistent atrial fibrillation, on Coumadin, Parkinson's, who follows with Dr. Luz in the [place] office. She was at physical therapy, they noted that her heart rate was low and for this reason she was brought to [facility]. EKG on arrival there showed atrial fibrillation with a slow ventricular response and patient was transferred here for further evaluation. In spite of the patient's beta lucia being held, heart rate consistently is in the low 40s. Dr. Patel did have a lengthy discussion with the patient and her regarding implantation of a permanent pacemaker. The risks and the benefits were explained in detail. Pacemaker implant was performed yesterday. Device was interrogated this morning and is functioning appropriately. Chest x-ray was reviewed, does not reveal any evidence of a pneumothorax. Patient has been encouraged to be up in the chair today, and ambulating in the hallway without. Arrangements are being made for rehab placement today. Blood pressure this morning 120/50, heart rate in the 60s. Objective - Vital Signs Vital signs: Vital Signs Temp 97 F L 12/22/16 08:45 Pulse 61 12/22/16 08:45 Resp 18 12/22/16 08:45 BP 119/54 12/22/16 08:45 Pulse Ox 100 12/22/16 08:45 Intake & Output 12/21/16 12/22/16 12/22/16 18:59 06:59 18:59 Intake Total 392 200 120 Output Total 800 1200 Balance -408 -1000 120 Weight 64 kg Intake: IV 56 Intake, IV Titration 200 Amount Sodium Chloride 0.9% 1, 200 000 ml @ 20 mls/hr IV . Q24H [facility] Rx#:[id number] Oral 336 120 Output: Urine 800 1200 Other: Voiding Method Bedside Commode Bedside Commode - Exam PHYSICAL EXAMINATION: HEENT: Head is atraumatic, normocephalic. Pupils equal, round. Neck is supple. There is no elevated jugular venous pressure. HEART EXAMINATION: R S1 and S2 irregular irregular CHEST EXAMINATION: Lungs are clear to auscultation and precussion. No chest wall tenderness is noted on palpation or with deep breathing. ABDOMEN: Soft, nontender. Bowel sounds are heard. No organomegaly noted. EXTREMITIES: 2+ peripheral pulses with no evidence of peripheral edema and no calf tenderness noted. Mild tremors NEUROLOGIC patient is awake, alert and oriented -3. Patient does have impaired speech secondary to Parkinson's - Labs CBC & Chem 7: 12/22/16 06:35 12/22/16 06:35 Labs: Abnormal Lab Results - Last 24 Hours (Table) 12/22/16 12/22/16 12/22/16 Range/Units 06:35 06:35 06:35 RDW 17.6 H (11.5-15.5) % PT 20.1 H (9.0-12.0) sec Glucose 109 H (74-99) mg/dL Assessment and Plan Plan: Assessment and plan #1 bradycardia, status post permanent pacemaker implantation #2 chronic persistent atrial fibrillation, on Coumadin. INR 2.1 today. #3 hypertension #4 Parkinson's Plan Patient's home dose of Coumadin will be resumed. She may be able to be transferred to rehab from cardiology's perspective. A follow-up appointment will be made in the device clinic next week, she will also have a follow-up appointment with Dr. Luz in [place]. DNP note has been reviewed, I agree with a documented findings and plan of care. Patient was seen and examined.
[2016-12-22] MEDS: MULTIVITAMINS, THERA 1 EACH TAB PO SCH (12:07)
[2016-12-22] MEDS: amLODIPine 10 MG TAB PO SCH (12:08)
[2016-12-22] MEDS: SODIUM CHLORIDE 0.9% 1,000 ML IV SCH (15:39)
--- NOTE | 2016-12-22 17:35 | PN ---
DATE OF SERVICE: 12/21/2016 This 86-year-old woman who was admitted with multiple medical problems underwent a pacemaker implantation. Seen and evaluated the patient along with the nurse practitioner. Please refer to nurse practitioner notes and impression documented for further information.
--- NOTE | 2016-12-22 18:29 | PN ---
DATE OF SERVICE: 12/22/2016 This 86-year-old woman who was admitted with bradycardia and atrial fibrillation, slow ventricular rate had a pacemaker implantation yesterday. No chest pain or palpitations. No fever. ECF rehab is being contemplated. The patient is extremely weak. On exam, alert and carotids x2. Pulse 61, blood pressure 130/66. Respiratory rate 16. Temperature 97.9, pulse ox 100% on room air. HEENT: Conjunctivae normal. NECK: No jugular venous distention. CARDIOVASCULAR: S1, S2 muffled. RESPIRATORY: Breath sounds diminished at the bases. Scattered rhonchi and crackles. ABDOMEN: Soft, nontender. LEGS: No edema. No swelling. CENTRAL NERVOUS SYSTEM: No focal deficits. Mild diffuse . LYMPHATICS: No lymph nodes palpable in the neck, axillae or groin. SKIN: no rash or bleeding. LABS: CBC within normal limits. INR 2.1. ASSESSMENT: 1. Severe bradycardia with atrial fibrillation with slow ventricular rate status post single chamber pacemaker implantation. 2. Coumadin monitoring. 3. Chronic persistent atrial fibrillation. 4. History of gastroesophageal reflux disease. 5. Hypertension. 6. History of degenerative joint disease. 7. History of Parkinson's disease with tremors. 8. Recurrent urinary tract infection. 9. Gait dysfunction. 10. History of ataxia. 11. History of postoperative nausea and vomiting. 12. FULL CODE. RECOMMENDATIONS AND DISCUSSION: In this 86 -year-old woman who presented with multiple complex medical issues, we will monitor medical issues, we will monitor the patient closely. Continue the current medications. Continue symptomatic treatment. PT, OT evaluation and possible ECF rehab. Guarded prognosis. Further recommendations to follow. Continue the rest of the medications. MTDD
[2016-12-22] MEDS: MELATONIN 3 MG TABLET PO SCH (21:18)
[2016-12-22] MEDS: LISINOPRIL 20 MG TAB PO SCH (21:18)
[2016-12-23 07:20] LABS: Anisocytosis Slight; Basophils % (A) 0 %; CH 28.7; CHCM 32.4; Eosinophils # (A) 0.1 k/uL (0-0.7); Eosinophils % (A) 1 %; HCT 38.9 % (34.0-46.0); HDW 2.23; HGB 12.2 gm/dL (11.4-16.0); Luc # (Auto) 0.21; Luc % (Auto) 3; Lymphocytes # (A) 1.9 k/uL (1.0-4.8); Lymphocytes % (A) 24 %; MCHC 31.4 g/dL (31.0-37.0); Mean Platelet Volume 7.4; Monocytes # (A) 0.6 k/uL (0-1.0); Monocytes % (A) 8 %; Neutrophils % (A) 64 %; RBC 4.37 m/uL (3.80-5.40); RDW 17.3 % (11.5-15.5); WBC 7.9 k/uL (3.8-10.6); WBC (Perox) 8.06
[2016-12-23 07:24] LABS: INR 1.8 (<1.1); Prothrombin Time 17.1 sec (9.0-12.0)
[2016-12-23] MEDS: MULTIVITAMINS, THERA 1 EACH TAB PO SCH (07:51)
[2016-12-23] MEDS: amLODIPine 10 MG TAB PO SCH (07:52)
[2016-12-23] MEDS: SODIUM CHLORIDE 0.9% 1,000 ML IV SCH (07:52)
[2016-12-23 07:59] LABS: Anion Gap 9 mmol/L; Blood Urea Nitrogen 12 mg/dL (7-17); Calcium 8.8 mg/dL (8.4-10.2); Carbon Dioxide 27 mmol/L (22-30); Chloride 103 mmol/L (98-107); Glucose 95 mg/dL (74-99); Non-African American GFR(MDRD) >60 (>60 ml/min/1.73 sqM); Potassium 4.1 mmol/L (3.5-5.1); Sodium 139 mmol/L (137-145)
[2016-12-23] MEDS: SENNOSIDES-DOCUSATE SODIUM 1 EACH TAB PO SCH (08:00)
[2016-12-23] MEDS ORDERED: WARFARIN 5 MG TAB PO ONE (19:00)
[2016-12-23] MEDS: LISINOPRIL 20 MG TAB PO SCH (20:07)
[2016-12-23] MEDS: MELATONIN 3 MG TABLET PO SCH (20:13)
[2016-12-24 04:04] VITALS: RESP 16
[2016-12-24 07:04] LABS: Anisocytosis Slight; Basophils % (A) 1 %; CH 28.8; CHCM 32.5; Eosinophils # (A) 0.2 k/uL (0-0.7); Eosinophils % (A) 3 %; HCT 36.7 % (34.0-46.0); HDW 2.35; HGB 11.8 gm/dL (11.4-16.0); Luc # (Auto) 0.12; Luc % (Auto) 2; Lymphocytes # (A) 1.4 k/uL (1.0-4.8); Lymphocytes % (A) 20 %; MCH 28.7 pg (25.0-35.0); MCHC 32.1 g/dL (31.0-37.0); MCV 89.3 fL (80.0-100.0); Mean Platelet Volume 8.1; Monocytes # (A) 0.5 k/uL (0-1.0); Monocytes % (A) 8 %; Neutrophils # (A) 4.5 k/uL (1.3-7.7); Neutrophils % (A) 67 %; RBC 4.11 m/uL (3.80-5.40); RDW 17.3 % (11.5-15.5); WBC 6.8 k/uL (3.8-10.6); WBC (Perox) 7.41
[2016-12-24 07:26] VITALS: BP 121/63; PULSE 61; TEMP 97.1
[2016-12-24 07:30] LABS: Blood Urea Nitrogen 12 mg/dL (7-17); Calcium 8.8 mg/dL (8.4-10.2); Carbon Dioxide 24 mmol/L (22-30); Non-African American GFR(MDRD) >60 (>60 ml/min/1.73 sqM); Potassium 4.2 mmol/L (3.5-5.1); Sodium 138 mmol/L (137-145)
[2016-12-24 07:31] LABS: Anion Gap 9 mmol/L; Chloride 105 mmol/L (98-107); Glucose 100 mg/dL (74-99)
[2016-12-24] MEDS: amLODIPine 10 MG TAB PO SCH (08:41)
[2016-12-24] MEDS: SENNOSIDES-DOCUSATE SODIUM 1 EACH TAB PO SCH (08:46)
[2016-12-24] MEDS: MULTIVITAMINS, THERA 1 EACH TAB PO SCH (13:26)
--- NOTE | 2016-12-24 15:55 | DS ---
DATE OF ADMISSION: 12/17/2016 DATE OF DISCHARGE: Discharge consultation and cardiology consultation, procedure is pacemaker placement. DISCHARGE DIAGNOSES: 1. Severe bradycardia with atrial fibrillation with slow ventricular rate status post single chamber pacemaker placement. 2. Coumadin monitoring. 3. Chronic persistent atrial fibrillation. 4. History of gastroesophageal reflux disease. 5. Hypertension. 6. Degenerative joint disease. 7. History of Parkinson's disease with tremor. 8. Recurrent urinary tract infection history. 9. Gait dysfunction. 10. History of ataxia. 11. History of postoperative nausea and vomiting. 12. History of FULL CODE. HOSPITAL COURSE: Mr. Marquez is an 86 -year-old female with multiple medical problems and complex issues admitted to the hospital with bradycardia and atrial fibrillation and slow ventricular rate. The patient was seen by cardiology and patient was placed on permanent pacemaker, single chamber. Currently heart rate is well controlled and beta blockers have been stopped at this time. The patient actually will be continued on metoprolol 25 mg b.i.d. as per cardiology recommendations. The patient currently on amlodipine, metoprolol and Lisinopril. Heart rate is better controlled now and patient will be continued on warfarin for anticoagulation and follow with Dr. Erasmo Luz in 1 to 2 weeks for further recommendations. Otherwise, patient is stable to be discharged to extended-care facility in stable condition. DISCHARGE PHYSICAL EXAMINATION: An 86-year-old female, lying in bed comfortably, awake alert and oriented times three, appears to be in no apparent distress. VITALS: Blood pressure is 121/63, pulse is 61. Respiratory rate 16, temperature afebrile, pulse ox 97% on room air. Laboratory data reviewed. Discharge physical examination done. Discharge medications include: 1. Lisinopril 40 mg p.o. at bedtime. 2. Clonazepam 0.5 mg p.o. b.i.d. p.r.n. for anxiety. 3. [place] 5/325 1 tablets p.o. q.6 hourly p.r.n. for pain. 4. Multivitamins 1 tablet p.o. daily. 5. Senokot-S 8.6 mg p.o. daily. 6. Warfarin 2 mg p.o. Saturday, Saturday, Saturday, Saturday and Saturday. 7. ( ) 2 mg p.o. at bedtime. 8. Amlodipine 10 mg p.o. daily. 9. Metoprolol 25 mg p.o. b.i.d. Patient will be discharged to rehab in stable condition. Activity as tolerated. Heart healthy diet. Coumadin monitoring. Total time taken more than 35 minutes including 18 minutes counselling the patient and coordinating care.
[2016-12-24] MEDS: SODIUM CHLORIDE 0.9% 1,000 ML IV SCH (15:59)
--- NOTE | 2016-12-24 16:52 | PN ---
DATE OF SERVICE: 12/23/2016 INTERVAL HISTORY: Ms. Marquez is an 86-year-old female admitted to the hospital with bradycardia and atrial fibrillation with slow ventricular rate. Patient underwent pacemaker placement on 12/21/2016. Currently denies any complaint of chest pain or shortness of breath. She is able to ambulate. Otherwise, patient may require an ECF transfer, possibly on Saturday, due to medical debility and weakness. REVIEW OF SYSTEMS: CONSTITUTIONAL: No fever. No chills. RESPIRATORY: No cough or sputum production. CARDIOVASCULAR: No chest pain or shortness of breath. ABDOMEN: No nausea, vomiting or abdominal pain. GENITOURINARY: Negative. ENDOCRINE: Negative. PSYCHIATRY: Negative. SKIN: Negative. All other 14-point review of systems negative except as above. Current medications include: 1. [place] 5/325. 2. Xanax. 3. Norvasc. 4. Klonopin. 5. Ibuprofen. 6. Lisinopril. 7. Melatonin. 8. Multivitamins. 9. Requip. 10. Senokot. 11. Normal saline at 20 mL/hour. PHYSICAL EXAMINATION: [id number]-old female lying in bed comfortably. Awake, alert and oriented x3. Appears to be no distress. VITALS: Blood pressure is 150/72. Pulse 74, respiration 16, temperature afebrile, pulse ox 93% on room air. HEENT: Atraumatic, normocephalic. Neck is supple. No JVD. CVS EXAM: S1, S2 heard. No murmurs. No gallop. LUNGS: Bilateral air entry is present. No wheezing. No crackles. ABDOMEN: Soft, nontender. Bowel sounds present. OWNER/PHOTOGRAPHER: Awake, alert, oriented x3. No focal deficit. EXTREMITIES: No edema. Pulses palpable bilaterally. No clubbing or cyanosis. PSYCHIATRIC: Cooperative. Laboratory data reviewed. Sodium 1139, potassium 4.1, chloride 103. Bicarb is 27. BUN 12, creatinine 0.65. Calcium 8.8. WBC 7.9, hemoglobin 12.2, platelets 250. IMPRESSION: 1. Severe bradycardia with atrial fibrillation and slow ventricular rate, status post single-chamber pacemaker placement. 2. Chronic persistent atrial fibrillation, on anticoagulation with Coumadin; INR 1.8. 3. Gastroesophageal reflux disease. 4. Hypertension. 5. Degenerative joint disease. 6. History of Parkinson's disease with tremors. 7. Recurrent urinary tract infection. 8. Gait dysfunction. 9. History of ataxia. 10. History of postoperative nausea, vomiting. 11. FULL CODE. DISCUSSION AND PLAN: Patient will be continued on her current medications, including amlodipine and lisinopril and Coumadin dosing. Will hold NSAIDs in the form of ibuprofen, especially with patient being on Coumadin. Continue the current management. Continue the PT, OT. Possible transfer to extended-care facility. Prognosis guarded. Further recommendations based on clinical course. Anticipate discharge tomorrow to extended-care facility.
--- NOTE | 2017-01-02 08:21 | P.PCN ---
Preoperative Diagnosis: Patient underwent EP procedure under conscious sedation/moderate sedation, monitoring of the level of consciousness and physiologic parameters including but not limited to vital signs and oxygenation. Start time: 1340 Stop time: 1424
== END 2016-12-24 16:48 | DRG 244 ==
LOC: 6SEL 20:48 → 5MS5E 12-22 15:21
PROVIDERS: ADMIT Hospitalist; ATTEND Hospitalist
PROC: 02HK3JZ Insertion of Pacemaker Lead into Right Ventricle, Percutaneous Approach (ICD-10-PCS; principal; 2016-12-21 11:00)
PROC: 0JH604Z Insertion of Pacemaker, Single Chamber into Chest Subcutaneous Tissue and Fascia, Open Approach (ICD-10-PCS; principal; 2016-12-21 11:00)
DX: I48.1 Persistent atrial fibrillation (principal); G20 Parkinson's disease; I10 Essential (primary) hypertension; R00.1 Bradycardia, unspecified; I48.2 Chronic atrial fibrillation; I48.92 Unspecified atrial flutter; K21.9 Gastro-esophageal reflux disease without esophagitis; M19.90 Unspecified osteoarthritis, unspecified site; M81.0 Age-related osteoporosis without current pathological fracture; Z87.440 Personal history of urinary (tract) infections; Z79.01 Long term (current) use of anticoagulants; Z88.0 Allergy status to penicillin; Z79.899 Other long term (current) drug therapy; Z88.1 Allergy status to other antibiotic agents; Z88.2 Allergy status to sulfonamides
CPT/HCPCS: 33206; 71020; 80048; 83880; 84439; 84443; 84484; 85025; 85610; 90732; 93306